=== PATIENT | male | born 1965 | race Two or more races ===

== ENCOUNTER 2018-04-06 12:50 | Outpatient (CLI) | payer MEDICAID ==
[~2018-04-06] VITALS: Ht 170.2 cm; Wt 104.3 kg
--- NOTE | 2018-04-06 15:48 | GI Initial Consult Note ---
History of Present Illness General Date patient seen: Apr 06, 2018 Time patient seen: 13:00 Referring physician: SONI MUSE Reason for Consultation: COLONOSCOPY SCREENING Present Illness HPI 52 year old male patient presents today for an initial colonoscopy screening. He denies any medical history, states he has only been doing with a torn ligament in his right knee. The patient states he may be a sensitive or allergic reaction to a pain medication, but is unable to recall at this time. Patient currently takes no medication. Presents today with no GI symptoms; no N/ V/D nor constipation. Denies any unintentional weight loss or changes in dietary habits. No signs of abuse or neglect. Patient is not fall risk. No history of endoscopy / colonoscopy. Med list reviewed/reconciled: Yes Patient History History Provided By: Patient, Medical Record H Narrative Denies. Past Surgical History: other - Right Inguinal Hernia Repair Family History Narrative Brother had a type of cancer, unknown. Social History: Denies: smoking, alcohol use, drug use, other Review of Systems All Other Systems: negative except mentioned in HPI Physical Exam T 98.2 BP 126/63 P 76 96 RA HT 5'7 WT 230 lbs Sp02 EP Interpretation: reviewed, normal General Appearance: well appearing, no apparent distress, alert Head: normocephalic EENT: PERRL/EOMI, normal ENT inspection Neck: supple Respiratory: normal breath sounds, no respiratory distress Cardiovascular: normal rate Gastrointestinal: normal inspection, non tender, soft, normal bowel sounds, non -distended Rectal: deferred Genitourinary: deferred Musculoskeletal: normal inspection, back normal Neurologic: normal inspection, alert, oriented x3, responsive Psychiatric: normal inspection, judgement/insight normal, memory normal Skin: normal inspection, normal color, no rash, warm/dry, palpation normal, well hydrated Lymphatic: normal inspection, no adenopathy GI: Plan Problems: (1) Encounter for screening colonoscopy Plan colonoscopy scheduled for 04/13/18. - CLD & (Nulytely/Suprep/Movi-Prep) prep instructions given and acknowledged by patient. - NPO @ OK day prior procedure explained. Seen with Dr. Schaffer. Thank you for this patient referral. The patient was seen and examined at bedside and all new and available data was reviewed in the patients chart. I agree with the above findings, impression and plan. (Patient seen earlier today. Signature stamp does not reflect patient encounter time.). - MD Esther Clark AnhBraxton HILARIO Apr 06, 2018 15:48
[2018-04-06 16:02] VITALS: BP 126/63
[2018-04-06] MEDS ORDERED: NO MEDICATION (16:03)
[2018-05-04] MEDS ORDERED: NKM (06:56)
== END 2018-04-06 14:50 | disposition home or self-care (01) ==
LOC: PAN 12:50
DX: Z12.11 Encounter for screening for malignant neoplasm of colon (principal)